=== PATIENT | male | born 1960 | race African-American/Black ===

== ENCOUNTER 2019-08-30 15:55 | Inpatient (IN) ==
[2019-08-30] MEDS ORDERED: ACETAMINOPHEN 325 MG TABLET PO PRN (16:15)
[2019-08-30] MEDS ORDERED: ONDANSETRON 4 MG/2 ML VIAL IV PRN (16:15)
[2019-08-30] MEDS ORDERED: HydrOXYzine PAMOATE 25 MG CAPSULE PO PRN (16:19)
[2019-08-30] MEDS ORDERED: DICYCLOMINE 10 MG CAPSULE PO PRN (16:19)
[2019-08-30] MEDS ORDERED: INFLUENZA VIRUS VACCINE 0.5 ML SYRINGE IM ONE (16:48)
[2019-08-30 17:22] LABS: Basophils % 0.4 % (0.0-0.8); Eosinophils # 0.1 10*3/uL (0.0-0.87); Eosinophils % 1.9 % (0.00-10.9); Hematocrit 39.1 VOL% (42.0-52.0); Hemoglobin 13.3 GM/DL (14.0-18.0); Immature Granulocytes % 0.1 %; Immature Granulocytes Absolute 0.01 #; Lymphocytes # 3.9 10*3/uL (1.4-4.0); Lymphocytes % 51.8 % (21.2-54.2); Mean Platelet Volume 9.9 FL (9.6-12.0); Monocytes % 9.6 % (1.7-12.7); Neutrophils % 36.2 % (38.7-73.9); Platelet Count 323 T/CUMM (130-400); Red Blood Count 4.03 MC/CUMM (3.8-5.5); Red Cell Distribution Width 13.2 % (9.3-17.3); White Blood Count 7.5 T/CUMM (4-12)
[2019-08-30 17:43] LABS: Calcium 9.5 MG/DL (8.5-10.1); Osmolality,Calculated 293.7 MOS/KG (273-304)
[2019-08-30] MEDS ORDERED: THIAMINE INJ 100 MG, FOLIC ACID INJ 1 MG, MULTIVITAMIN INJ 10 ML in SODIUM CHLORIDE 0.9... IV ONE (18:00)
[2019-08-30] MEDS: chlordiazePOXIDE 25 MG CAPSULE PO SCH ×2 (18:13→23:19)
[2019-08-30] MEDS: NICOTINE 14 MG/24 HR PATCH TRANSDERM SCH (18:13)
[2019-08-30 18:17] LABS: Anisocytosis 1+; Eosinophils 3 % (0-10); Lymphocytes 51 % (20-55); Macrocytosis 1+; Segmented Neutrophils 41 % (50-85); Total Cells Counted 100
[2019-08-30 18:18] LABS: Microcytosis Slight; Platelet Estimate Normal; Reactive Lymphocytes Slight
[2019-08-30] MEDS: ENOXAPARIN 40 MG/0.4 ML SYRINGE SUBCUT SCH (21:00)
[2019-08-31] MEDS: chlordiazePOXIDE 25 MG CAPSULE PO SCH ×3 (04:47→16:13)
[2019-08-31] MEDS ORDERED: MELATONIN 3 MG TABLET PO PRN (08:51)
[2019-08-31] MEDS: PANTOPRAZOLE 40 MG TABLET PO SCH (10:03)
[2019-08-31] MEDS: NICOTINE 14 MG/24 HR PATCH TRANSDERM SCH (10:03)
[2019-08-31] MEDS: ENOXAPARIN 40 MG/0.4 ML SYRINGE SUBCUT SCH (21:32)
[2019-08-31] MEDS: GABAPENTIN 600 MG TABLET PO SCH (21:33)
[2019-08-31] MEDS: NAPROXEN 500 MG TABLET PO SCH (21:33)
[2019-08-31] MEDS: METAXALONE 800 MG TABLET PO SCH (21:34)
[2019-09-01] MEDS: chlordiazePOXIDE 25 MG CAPSULE PO SCH ×2 (01:38→09:16)
[2019-09-01] MEDS: NICOTINE 14 MG/24 HR PATCH TRANSDERM SCH (09:15)
[2019-09-01] MEDS: PANTOPRAZOLE 40 MG TABLET PO SCH (09:16)
[2019-09-01] MEDS: METAXALONE 800 MG TABLET PO SCH (09:16)
[2019-09-01] MEDS: NAPROXEN 500 MG TABLET PO SCH (09:16)
[2019-09-01] MEDS: GABAPENTIN 600 MG TABLET PO SCH (09:16)
[2019-09-01 11:45] VITALS: BP 136/72
[2019-09-01] MEDS ORDERED: DULoxetine 30 MG CAPSULE PO SCH (17:00)
[2019-09-01] MEDS ORDERED: amLODIPine 5 MG TABLET PO SCH (17:00)
== END 2019-09-01 12:10 | disposition left against medical advice (07) | DRG 894 ==
LOC: N.4E 16:04
PROVIDERS: ADMIT Internal Medicine Geriatric Medicine; ATTEND Internal Medicine Geriatric Medicine

== ENCOUNTER 2021-07-04 13:22 | Observation (INO) ==
[2021-07-04] MEDS ORDERED: SODIUM CHLORIDE 0.9% 1,000 ML IV STA (14:26)
[2021-07-04] MEDS ORDERED: PANTOPRAZOLE 40 MG VIAL IV STA (14:26)
[2021-07-04] MEDS ORDERED: ONDANSETRON 4 MG/2 ML VIAL IV STA (14:26)
[2021-07-04 14:43] LABS: Basophils % 0.2 % (0.0-0.8); Eosinophils # 0.3 10*3/uL (0.0-0.87); Eosinophils % 2.2 % (0.00-10.9); Hematocrit 39.3 VOL% (42.0-52.0); Hemoglobin 13.5 GM/DL (14.0-18.0); Immature Granulocytes % 0.4 %; Immature Granulocytes Absolute 0.05 #; Lymphocytes # 5.6 10*3/uL (1.4-4.0); Lymphocytes % 40.7 % (21.2-54.2); Mean Corpuscular HGB Conc 34.4 GM/DL (32-36); Mean Corpuscular Volume 97.5 FL (87-102); Mean Platelet Volume 9.5 FL (9.6-12.0); Monocytes % 5.4 % (1.7-12.7); Neutrophils % 51.1 % (38.7-73.9); Platelet Count 288 T/CUMM (130-400); Red Blood Count 4.03 MC/CUMM (3.8-5.5); Red Cell Distribution Width 12.8 % (9.3-17.3); White Blood Count 13.8 T/CUMM (4-12)
[2021-07-04 14:55] LABS: PT Patient Result 10.9 SECS (10.5-12.0)
[2021-07-04 15:14] LABS: Bilirubin,Total 0.5 MG/DL (0.20-1.00); Osmolality,Calculated 281.4 MOS/KG (273-304); Potassium 3.3 MMOL/L (3.5-5.1); Total Protein 7.9 G/DL (6.4-8.2)
[2021-07-04 15:56] LABS: Bacteria,Urine Occasional /HPF (Few); Bilirubin,Urine Small mg/dL (Negative); Blood, Urine Negative (Negative); Glucose,Urine (UA) Negative (Negative); Hyaline Casts,Urine 18 /LPF (0-3); Ketones,Urine 5 mg/dL (Negative); Mucus,Urine Few /LPF (Occasional); Nitrite,Urine Negative (Negative); Protein,Urine 100 MG/DL; RBC,Urine 3 /HPF (0-4); Squamous Epithelial Cell,Urine Occasional /HPF (0-10); Urine Appearance CLEAR (Clear); Urine Color Amber (Yellow); Urine Specific Gravity 1.025 (1.001-1.035)
[2021-07-05] MEDS ORDERED: DEXTROSE 50% 25 GM/50 ML VIAL IV PRN (00:16)
[2021-07-05] MEDS ORDERED: GLUCAGON 1 MG VIAL IM PRN (00:16)
[2021-07-05] MEDS ORDERED: ONDANSETRON 4 MG/2 ML VIAL IV PRN (00:17)
[2021-07-05] MEDS ORDERED: DOCUSATE SODIUM 100 MG CAPSULE PO PRN (00:17)
[2021-07-05] MEDS ORDERED: ACETAMINOPHEN 325 MG TABLET PO PRN (00:17)
[2021-07-05 00:20] LABS: Cannabinoid Screen,Urine Negative (Negative)
[2021-07-05 00:21] LABS: Barbiturates Screen,Urine Negative (Negative); Benzodiazepines Screen,Urine Negative (Negative); Opiate Screen,Urine Negative (Negative); Phencyclidine Screen,Urine Negative (Negative)
[2021-07-05] MEDS ORDERED: LORazepam 2 MG/1 ML VIAL IV PRN (01:31)
[2021-07-05] MEDS: SODIUM CHLORIDE 0.9% 1,000 ML IV SCH ×3 (01:33→17:44)
[2021-07-05 01:43] LABS: Hematocrit 36.5 VOL% (42.0-52.0); Hemoglobin 12.4 GM/DL (14.0-18.0)
[2021-07-05 06:21] LABS: Basophils % 0.2 % (0.0-0.8); Eosinophils # 0.3 10*3/uL (0.0-0.87); Eosinophils % 2.6 % (0.00-10.9); Hematocrit 34.9 VOL% (42.0-52.0); Hemoglobin 11.8 GM/DL (14.0-18.0); Immature Granulocytes % 0.3 %; Immature Granulocytes Absolute 0.03 #; Lymphocytes # 4.3 10*3/uL (1.4-4.0); Lymphocytes % 40.5 % (21.2-54.2); Mean Corpuscular HGB Conc 33.8 GM/DL (32-36); Mean Corpuscular Volume 97.2 FL (87-102); Mean Platelet Volume 9.8 FL (9.6-12.0); Monocytes % 6.6 % (1.7-12.7); Neutrophils % 49.8 % (38.7-73.9); Platelet Count 245 T/CUMM (130-400); Red Blood Count 3.59 MC/CUMM (3.8-5.5); Red Cell Distribution Width 12.8 % (9.3-17.3); White Blood Count 10.5 T/CUMM (4-12)
[2021-07-05 06:43] LABS: Microcytosis 1+
[2021-07-05 06:44] LABS: Platelet Estimate Normal
[2021-07-05 06:57] LABS: Albumin 3.2 G/DL (3.4-5.0); Bilirubin,Total 0.8 MG/DL (0.20-1.00); Calcium 8.2 MG/DL (8.5-10.1); Potassium 3.2 MMOL/L (3.5-5.1); Risk Ratio 4.08; Thyroid Stimulating Hormone 0.446 uIU/ml (0.358-3.74); Total Protein 6.5 G/DL (6.4-8.2)
[2021-07-05 07:02] LABS: Osmolality,Calculated 278.3 MOS/KG (273-304)
[2021-07-05] MEDS: POTASSIUM CHLORIDE 20 MEQ TABLET PO PRN ×4 (08:44→14:37)
[2021-07-05] MEDS: GABAPENTIN 400 MG CAPSULE PO SCH ×3 (08:44→20:51)
[2021-07-05] MEDS: PANTOPRAZOLE 40 MG VIAL IV SCH ×2 (09:38→20:54)
[2021-07-05 12:45] LABS: Hematocrit 34.6 VOL% (42.0-52.0); Hemoglobin 11.7 GM/DL (14.0-18.0)
[2021-07-05 17:29] LABS: Hematocrit 36.2 VOL% (42.0-52.0); Hemoglobin 12.1 GM/DL (14.0-18.0)
[2021-07-06] MEDS: SODIUM CHLORIDE 0.9% 1,000 ML IV SCH ×2 (01:45→10:09)
[2021-07-06 04:28] LABS: Basophils % 0.3 % (0.0-0.8); Eosinophils # 0.3 10*3/uL (0.0-0.87); Eosinophils % 2.9 % (0.00-10.9); Hematocrit 32.3 VOL% (42.0-52.0); Hemoglobin 11.1 GM/DL (14.0-18.0); Immature Granulocytes % 0.2 %; Immature Granulocytes Absolute 0.02 #; Lymphocytes % 46.1 % (21.2-54.2); Mean Corpuscular HGB Conc 34.4 GM/DL (32-36); Mean Corpuscular Volume 97.6 FL (87-102); Mean Platelet Volume 9.8 FL (9.6-12.0); Monocytes % 6.8 % (1.7-12.7); Neutrophils % 43.7 % (38.7-73.9); Platelet Count 229 T/CUMM (130-400); Red Blood Count 3.31 MC/CUMM (3.8-5.5); Red Cell Distribution Width 12.7 % (9.3-17.3); White Blood Count 8.7 T/CUMM (4-12)
[2021-07-06 04:51] LABS: Eosinophils 3 % (0-10); Hypochromasia Slight; Lymphocytes 50 % (20-55); Microcytosis Slight; Platelet Estimate Adequate; Segmented Neutrophils 44 % (50-85); Total Cells Counted 100
[2021-07-06 04:56] LABS: Albumin 2.8 G/DL (3.4-5.0); Bilirubin,Total 0.9 MG/DL (0.20-1.00); Potassium 3.8 MMOL/L (3.5-5.1); Total Protein 5.6 G/DL (6.4-8.2)
[2021-07-06] MEDS: PANTOPRAZOLE 40 MG VIAL IV SCH (08:24)
[2021-07-06] MEDS: POTASSIUM CHLORIDE 20 MEQ TABLET PO PRN (08:42)
[2021-07-06] MEDS: GABAPENTIN 400 MG CAPSULE PO SCH (08:42)
[2021-07-06 12:18] VITALS: BP 148/87
== END 2021-07-06 12:25 | disposition home or self-care (01) ==
LOC: N.ED 13:22 → N.EDINP 13:22 → SUATTDRO 23:12 → N.TELES 07-05 00:33
PROVIDERS: ADMIT Hospitalist; ATTEND Internal Medicine